=== PATIENT | female | born 1955 | race Caucasian/White ===

== ENCOUNTER 2021-11-15 07:03 | Inpatient (IN) ==
[2021-11-14 11:43] LABS: Basophils # 0.1 10*3/uL (0.0-0.2); Basophils % 0.7 % (0.0-0.8); Eosinophils # 0.2 10*3/uL (0.0-0.87); Hemoglobin 13.7 GM/DL (12.0-16.0); Immature Granulocytes % 0.5 %; Immature Granulocytes Absolute 0.04 #; Lymphocytes # 1.7 10*3/uL (1.4-4.0); Lymphocytes % 19.1 % (21.3-54.2); Mean Corpuscular HGB Conc 32.6 GM/DL (32-36); Mean Corpuscular Volume 92.3 FL (87-102); Mean Platelet Volume 10.5 FL (9.6-12.0); Monocytes # 0.7 10*3/uL (0.11-0.8); Monocytes % 7.8 % (1.7-12.7); Neutrophils % 69.9 % (38.7-73.9); Platelet Count 232 T/CUMM (130-400); Red Blood Count 4.55 MC/CUMM (3.8-5.5); Red Cell Distribution Width 14.7 % (9.3-17.3); White Blood Count 8.8 T/CUMM (4-12)
[2021-11-14 12:10] LABS: Calcium 9.9 MG/DL (8.5-10.1); Osmolality,Calculated 275.7 MOS/KG (273-304); Potassium 3.9 MMOL/L (3.5-5.1)
[~2021-11-15 07:03] MED LIST: CLINDAMYCIN INJ 900 MG/50 ML PREMIX IV ONE; LACTATED RINGERS 1,000 ML IV SCH
[2021-11-15] MEDS ORDERED: DIAZEPAM 5 MG TABLET PO ONE (07:41)
[2021-11-15] MEDS ORDERED: ACETAMINOPHEN 500 MG TABLET PO ONE (07:41)
[2021-11-15] MEDS ORDERED: GABAPENTIN 400 MG CAPSULE PO ONE (07:41)
[2021-11-15] MEDS ORDERED: FAMOTIDINE 20 MG TABLET PO ONE (07:41)
[2021-11-15] MEDS ORDERED: ROPIVACAINE 0.5% 30 ML VIAL ONE (12:46)
[2021-11-15] MEDS ORDERED: DEXAMETHASONE 4 MG/1 ML VIAL ONE (12:46)
[2021-11-15] MEDS ORDERED: LIDOCAINE 1% 5 ML VIAL ONE (12:46)
[2021-11-15] MEDS ORDERED: fentaNYL 100 MCG/2 ML VIAL ONE ×2 (12:47→14:57)
[2021-11-15] MEDS ORDERED: MIDAZOLAM 2 MG/2 ML VIAL ONE (12:47)
[2021-11-15] MEDS ORDERED: ROCURONIUM 50 MG/5 ML VIAL IV ONE (12:53)
[2021-11-15] MEDS ORDERED: propofoL 200 MG/20 ML VIAL IV ONE (12:53)
[2021-11-15] MEDS ORDERED: ONDANSETRON 4 MG/2 ML VIAL ONE ×2 (12:53→14:39)
[2021-11-15] MEDS ORDERED: LIDOCAINE 2% 5 ML VIAL ONE (12:53)
[2021-11-15] MEDS ORDERED: SEVOFLURANE 1 UNIT/15 MINUTE INH ONE ×10 (12:53→16:21)
[2021-11-15] MEDS ORDERED: ISOSULFAN BLUE 5 ML VIAL SUBCUT ONE (13:14)
[2021-11-15] MEDS ORDERED: TISSUE ADHESIVE 1 EACH APPLICATOR TOP ONE (13:15)
[2021-11-15] MEDS ORDERED: ePHEDrine 50 MG/ML VIAL ONE (14:05)
[2021-11-15] MEDS ORDERED: HYDROmorphone 1 MG/1 ML SYRINGE IV PRN (16:26)
[2021-11-15] MEDS ORDERED: ACETAMINOPHEN 325 MG TABLET PO PRN (16:26)
[2021-11-15] MEDS ORDERED: ONDANSETRON 4 MG/2 ML VIAL IV PRN (16:26)
[2021-11-15] MEDS: DEXTROSE 5% LACTATED RINGERS 1,000 ML IV SCH (18:56)
[2021-11-16] MEDS ORDERED: PANTOPRAZOLE 40 MG TABLET PO SCH (09:00)
[2021-11-16] MEDS: DEXTROSE 5% LACTATED RINGERS 1,000 ML IV SCH (14:46)
[2021-11-16 16:00] VITALS: BP 113/69
== END 2021-11-16 18:01 | disposition home or self-care (01) | DRG 581 ==
LOC: N.OR 07:03 → N.SDSINP 07:03 → N.3E 16:26
PROVIDERS: ADMIT Student in an Organized Health Care Education/Training Program; ATTEND Student in an Organized Health Care Education/Training Program